=== PATIENT | female | born 1985 | race Caucasian/White ===

== ENCOUNTER 2018-01-06 12:31 | Inpatient (IN) | payer OTHER ==
[~2018-01-06] VITALS: Ht 152.4 cm; Wt 61.2 kg
[~2018-01-06 12:31] MED LIST: PRENA1 CHEW TA1.4 MG; ULTRACET PO
[2018-01-18] MEDS ORDERED: GAS RELIEF125 MG PO (12:35)
[2018-01-18] MEDS ORDERED: DOCUSATE SODIU100 MG PO (12:35)
[2018-01-18] MEDS ORDERED: OXYC1TAB9 PO (12:35)
== END 2018-01-18 14:24 | DRG 766 ==
LOC: SURG-SUITE 01-15 18:07 → LDR 01-15 18:07 → OB/GYN 01-15 20:19 → SURG-SUITE 01-15 20:25 → LDR 01-20 12:30
PROVIDERS: Obstetrics & Gynecology
PROC: 4A1HXCZ Monitoring of Products of Conception, Cardiac Rate, External Approach (ICD-10-PCS; 2018-01-15)
PROC: 10D00Z1 Extraction of Products of Conception, Low, Open Approach (ICD-10-PCS; principal; 2018-01-15 18:00)
DX: O69.81X0 Labor and delivery complicated by cord around neck, without compression, not applicable or unspecified (principal); Z3A.38 38 weeks gestation of pregnancy; Z37.0 Single live birth